=== PATIENT | male | born 1975 | race Caucasian/White ===

== ENCOUNTER 2024-04-30 12:40 | Emergency (ER) | payer SELFPAY ==
[~2024-04-30] VITALS: Ht 177.8 cm; Wt 75.0 kg
[2024-04-30 12:53] VITALS: TEMP 96.4
[2024-04-30 13:51] LABS: BASO % 0.6 % (0.0-1.0); EOS # 0.1 10^3/uL (0.0-0.5); EOS % 1.8 % (0.0-3.0); HEMATOCRIT 35.3 % (42.0-52.0); HEMOGLOBIN 11.5 g/dl (13.5-17.5); LYMPH # 1.6 10^3/uL (1.5-5.0); LYMPH % 25.8 % (24.0-44.0); MEAN CORPUSCULAR HEMOGLOBIN 31.4 pg (27.0-33.0); MEAN CORPUSCULAR HGB CONC 32.6 g/dl (32.0-36.5); MEAN CORPUSCULAR VOLUME 96.4 fl (80.0-96.0); MONO # 0.5 10^3/uL (0.0-0.8); MONO % 7.7 % (2.0-8.0); NEUTROPHILS % 63.8 % (36.0-66.0); PLATELET COUNT, AUTOMATED 308 10^3/uL (150-450); RED BLOOD COUNT 3.66 10^6/uL (4.30-6.10); WHITE BLOOD COUNT 6.2 10^3/uL (4.0-10.0)
[2024-04-30 14:05] LABS: INR 0.93; PARTIAL THROMBOPLASTIN TIME 28.9 SECONDS (24.8-34.2); PROTHROMBIN TIME 12.2 SECONDS (12.5-14.5)
[2024-04-30 14:28] LABS: ALBUMIN 3.8 G/DL (3.2-5.2); ALKALINE PHOSPHATASE 85 U/L (46-116); ALT/SGPT 33 U/L (7.0-40); AST/SGOT 27 U/L (<34); BILIRUBIN,TOTAL 0.2 MG/DL (0.3-1.2); BLOOD UREA NITROGEN 14 MG/DL (9-23); CALCIUM LEVEL 9.2 MG/DL (8.5-10.1); CARBON DIOXIDE LEVEL 31 MMOL/L (20-31); CHLORIDE LEVEL 102 MMOL/L (98-107); CREATININE FOR GFR 0.65 MG/DL (0.70-1.30); GLOMERULAR FILTRATION RATE > 60.0 (>56); GLUCOSE, FASTING 97 MG/DL (60-100); POTASSIUM SERUM 4.4 MMOL/L (3.5-5.1); SODIUM LEVEL 136 MMOL/L (136-145); TOTAL PROTEIN 6.3 G/DL (5.7-8.2)
[2024-04-30 14:31] LABS: THYROID STIMULATING HORMONE 1.068 uIU/ML (0.55-4.78)
[2024-04-30] MEDS: NS 1,000 ML IV ONE (14:35)
[2024-04-30 14:38] LABS: AMPHETAMINES LEVEL URINE NEGATIVE (NEGATIVE); BARBITURATES URINE NEGATIVE (NEGATIVE); BENZODIAZEPINES URINE NEGATIVE (NEGATIVE); COCAINE METABOLITE URINE NEGATIVE (NEGATIVE); METHADONE URINE NEGATIVE (NEGATIVE); PHENCYCLIDINE URINE NEGATIVE (NEGATIVE)
[2024-04-30 14:39] LABS: CANNABINOIDS URINE POSITIVE (NEGATIVE); OPIATES URINE POSITIVE (NEGATIVE)
[2024-04-30 15:13] LABS: CK-MB VALUE MASS 9.2 NG/ML (<3.6)
[2024-04-30 15:16] LABS: CPK CREATINE PHOSPHOKINASE 483 U/L (46-171)
[2024-04-30 15:31] VITALS: BP 154/82; O2SAT 99
[2024-05-01] MEDS ORDERED: NEXI20CA PO (14:16)
[2024-05-01] MEDS ORDERED: METO1TAB32 PO (14:40)
[2024-05-01] MEDS ORDERED: METO1TAB7 PO (14:54)
== END 2024-04-30 15:53 | disposition home or self-care (01) ==
LOC: M ED 12:40
DX: I95.1 Orthostatic hypotension (principal); I10 Essential (primary) hypertension; J44.9 Chronic obstructive pulmonary disease, unspecified

== ENCOUNTER 2024-05-01 13:59 | Emergency (ER) | payer SELFPAY ==
[~2024-05-01] VITALS: Ht 177.8 cm; Wt 75.0 kg
[2024-05-01] MEDS ORDERED: NEXI20CA PO (14:16)
[2024-05-01] MEDS ORDERED: METO1TAB32 PO (14:40)
[2024-05-01 14:49] VITALS: BP 146/86
[2024-05-01] MEDS: METOPROLOL TART 50 MG TAB PO ONE (14:49)
[2024-05-01] MEDS ORDERED: METO1TAB7 PO (14:54)
[2024-05-01 15:15] VITALS: BP 158/95; TEMP 97.8; O2SAT 99
== END 2024-05-01 15:18 | disposition home or self-care (01) ==
LOC: M ED 13:59 → EDBD 13:59 → M ED 15:18
DX: I10 Essential (primary) hypertension (principal); J44.9 Chronic obstructive pulmonary disease, unspecified; I73.9 Peripheral vascular disease, unspecified; F17.200 Nicotine dependence, unspecified, uncomplicated